=== PATIENT | male | born 1960 | race Caucasian/White ===

== ENCOUNTER 2020-12-28 20:27 | Emergency (ER) | payer OTHER, SELFPAY ==
[2020-12-28] VITALS (24 sets, daily range): BP systolic 105–147; BP diastolic 53–96; PULSE 91–106; RESP 10–24; TEMP 37.8; O2SAT 93–99
[2020-12-28 21:46] LABS: Basophils Percent Auto 0.2 % (0.2-1.2); Eosinophils Percent Auto 0.2 % (0-4.4); Hematocrit 38.9 % (42.0-52.0); Hemoglobin 13.1 g/dL (14.0-18.0); Immature Granulocyte Absolute 0.07 K/mm3 (0.00-0.031); Immature Granulocyte Percent A 0.5 % (0-0.5); Lymphocytes Absolute Auto 1.19 K/mm3 (0.9-3.2); Mean Corpuscular HGB Conc 33.7 g/dl (32-36); Mean Corpuscular Hemoglobin 31.2 pg (26-34); Mean Corpuscular Volume 92.6 fl (80-100); Mean Platelet Volume 9.2 fl (7.4-10.4); Monocytes Absolute Auto 1.4 K/mm3 (0.1-0.6); Monocytes Percent Auto 9.5 % (2.6-8.5); Neutrophils Absolute Auto 12.1 K/mm3 (1.3-6.7); Neutrophils Percent Auto 81.6 % (45.5-73.1); Platelet Count Result 288 k/mm3 (150-375); Red Cell Distribution Width 12.9 % (11.5-14.5); White Blood Count 14.8 K/mm3 (4.5-10.0)
[2020-12-28 21:47] LABS: Add Urine Microscopic? YES; Appearance Urine Cloudy (Clear); Bacteria Urine Trace /hpf; Bilirubin Urine Negative (Negative); Blood Urine 3+ (Negative); Color Urine Amber (Yellow); Glucose Urine UA Negative (Negative); Ketones Urine Negative (Negative); Leukocyte Esterase Ur 2+ LEU/UL (Negative); Mucus Urine Heavy /lpf; Nitrate Urine Positive (Negative); Protein Urine 2+ mg/dL (Negative); RBC Urine >75 /hpf (0-2); Squamous Epithelial Cell Urine Rare /hpf (Few); WBC Urine >75 /hpf
[2020-12-28 21:56] LABS: Alanine Aminotransferase 74 U/L (4-50); Albumin Level 4.5 g/dL (3.5-5.1); Alkaline Phosphatase 188 U/L (38-126); Anion Gap 12 mmol/L (8-16); Aspartate Amino Transferase 79 U/L (17-59); Bilirubin,Total 1.8 mg/dL (0.2-1.3); Blood Urea Nitrogen 18 mg/dL (9-20); Calcium 9.7 mg/dL (8.4-10.2); Carbon Dioxide 20 mmol/L (22-30); Chloride 106 mmol/L (98-107); Estimated CRCL calculation 71 ml/min; Estimated Glomerular Filt Rate > 60; Glucose 132 mg/dL (75-110); Potassium 3.9 mmol/L (3.4-5.0); Sodium 138 mmol/L (137-145)
[2020-12-28] MEDS: KETOROLAC 30 MG/ML VIAL (*BKC) IV PUSH (23:00)
[2020-12-28] MEDS: SODIUM CHLORIDE 0.9% IV 1,000 ML 999 ML IV CONT (23:00)
[2020-12-29] VITALS: PULSE 91; RESP 24; O2SAT 96
[2020-12-29 00:01] VITALS: BP 101/61; PULSE 94; RESP 21; O2SAT 95
--- NOTE | 2020-12-29 00:08 | PC.NURSE ---
started Rocephin, updated pt and family member. no questions at this time.
[2020-12-29 00:15] VITALS: PULSE 90; RESP 24; O2SAT 95
--- NOTE | 2020-12-29 00:51 | ED.GENADULT ---
HPI - General Adult General Chief complaint: Urogenital-Male Stated complaint: bladder infection/ blood infection Time Seen by Provider: 12/28/20 22:22 History of Present Illness HPI narrative: Patient 60-year-old gentleman who presents the emergency department with chief complaint of fever and chills. The patient reports he had a urological procedure at [place] and has a catheter in place. Patient reports that he started having fever chills body aches and aches all over. Patient states that he is concerned that he may have a urinary infection. Patient reports symptoms not improved by anything or they worsened by anything. Related Data Home Medications Medication Instructions Recorded Confirmed atorvastatin 12/28/20 carvedilol 12/28/20 losartan 12/28/20 Allergies Allergy/AdvReac Type Severity Reaction Status Date / Time No Known Drug Allergies Allergy Unknown Unknown Verified 12/28/20 21:59 Review of Systems Review of Systems: Narrative: A 10 system review of systems was completed on the patient and is negative except for what is stated in the HPI. Nursing and ancillary documentation was reviewed. [facility] Social History Social History Gender identity (if verbalized by the patient): Male Comments Amputation of right lower extremity Scar tissue and urethra Urethral surgery Social history the patient denies illicit drug use Exam Narrative: Exam Narrative: GENERAL: Well-appearing, well-nourished, and in no acute distress. HEAD: Normocephalic, atraumatic. EYES: PERRLA and EOMI. ENT: Nares clear, no rhinorrhea or epistaxis. Mucous membranes moist. NECK: Supple. CHEST: Clear to auscultation. No respiratory distress. HEART: Regular rate and rhythm. No murmur heard. Normal peripheral pulses. ABDOMEN: Soft, nontender, nondistended, normal active bowel sounds. EXTREMITIES: Normal range of motion. No edema. There is an amputation of the right lower extremity SKIN: Warm, dry, no rash. NEURO: No focal deficits. Alert and oriented x3. PSYCH: Normal mood and affect. Course Vital Signs Vital signs: Vital Signs Temperature 37.8 C H 12/28/20 20:53 Pulse Rate 104 H 12/28/20 20:53 Respiratory Rate 14 12/28/20 20:53 Blood Pressure 147/53 H 12/28/20 20:53 Pulse Oximetry 96 12/28/20 20:53 Temperature 37.8 C H 12/28/20 20:53 Pulse Rate 90 12/29/20 00:15 Respiratory Rate 24 H 12/29/20 00:15 Blood Pressure 101/61 12/29/20 00:01 Pulse Oximetry 95 12/29/20 00:15 Medical Decision Making Vital Signs Vital Signs: Vital Signs Temperature 37.8 C H 12/28/20 20:53 Pulse Rate 104 H 12/28/20 20:53 Respiratory Rate 14 12/28/20 20:53 Blood Pressure 147/53 H 12/28/20 20:53 Pulse Oximetry 96 12/28/20 20:53 Temperature 37.8 C H 12/28/20 20:53 Pulse Rate 90 12/29/20 00:15 Respiratory Rate 24 H 12/29/20 00:15 Blood Pressure 101/61 12/29/20 00:01 Pulse Oximetry 95 12/29/20 00:15 Lab Data Result diagrams: 12/28/20 21:39 12/28/20 21:39 Labs: Lab Results 12/28/20 12/28/20 12/28/20 Range/Units 21:30 21:39 21:39 WBC 14.8 H (4.5-10.0) K/mm3 RBC 4.20 L (4.6-6.20) M/mm3 Hgb 13.1 L (14.0-18.0) g/dL Hct 38.9 L (42.0-52.0) % MCV 92.6 (80-100) fl MCH 31.2 (26-34) pg MCHC 33.7 (32-36) g/dl RDW 12.9 (11.5-14.5) % Plt Count 288 (150-375) k/mm3 MPV 9.2 (7.4-10.4) fl Immature Gran % (Auto) 0.5 (0-0.5) % Neut % (Auto) 81.6 H (45.5-73.1) % Lymph % (Auto) 8.0 L (18.3-44.2) % [place] % (Auto) 9.5 H (2.6-8.5) % Eos % (Auto) 0.2 (0-4.4) % Baso % (Auto) 0.2 (0.2-1.2) % Lymph # (Auto) 1.19 (0.9-3.2) K/mm3 Assumption # (Auto) 1.4 H (0.1-0.6) K/mm3 Eos # (Auto) 0.0 (0-0.3) K/mm3 Baso # (Auto) 0.0 (0.0-0.1) K/mm3 Abs Immat Gran (auto) 0.07 H (0.00-0.031) K/mm3 Absolute Neuts (auto) 12.1 H (1.3-6.7) K/mm3 Absolute Nucleated RBC 0.0
[2020-12-29 01:12] VITALS: BP 110/64; PULSE 68; RESP 20; O2SAT 98
== END 2020-12-29 01:16 | disposition home or self-care (01) ==
PROVIDERS: Emergency Provider Emergency Medicine; PCP Nurse Practitioner Family
DX: N30.01 Acute cystitis with hematuria (principal)
CPT/HCPCS: 36415; 80053; 81001; 83605; 85025; 87077; 87086; 87088; 87186; 96361; 96365; 96374; 99284; J0696; J1885; J7030

== ENCOUNTER 2021-01-23 11:55 | Emergency (ER) | payer OTHER, SELFPAY ==
--- NOTE | ~2021-01-23 | XR_ITS ---
EXAMINATION: XR hand RT min 3V DATE: 01/23/2021 12:17 INDICATION: Lacerations at the right second and fourth fingers TECHNIQUE: Posteroanterior, oblique and lateral views of the right hand were obtained. COMPARISON: None. FINDINGS: Bone alignment is normal. No fracture. Prominent subarticular cystic change at the ulnar side of the proximal aspect of the lunate which may be related to ulnocarpal impaction given the suggestion of 1- 2 mm ulnar positive variance. Polyarticular osteoarthritis at the triscaphe, first carpometacarpal an d at multiple metacarpophalangeal and interphalangeal joints. Additional likely degenerative mild sub articular cystic change at the head of the third metacarpal. Bandaging material about the proximal as pect of the second digit and distal aspect of the fourth digit consistent with provided history of la cerations. No radiopaque foreign bodies identified. IMPRESSION: 1. No acute osseous abnormality or radiopaque foreign bodies. 2. One half and 2 mm ulnar positive variance with cystic change at the lunate consistent with ulnocar pal impaction. 3. Mild polyarticular osteoarthritis. Reviewed, dictated and finalized at location A. IMPRESSION: 1. No acute osseous abnormality or radiopaque foreign bodies. 2. One half and 2 mm ulnar positive variance with cystic change at the lunate c onsistent with ulnocarpal impaction. 3. Mild polyarticular osteoarthritis.
[2021-01-23 12:04] VITALS: BP 167/89; PULSE 99; RESP 20; TEMP 37.3; O2SAT 100
[2021-01-23 13:55] VITALS: BP 151/103; PULSE 98; RESP 20; TEMP 36.7; O2SAT 99
--- NOTE | 2021-01-23 15:26 | ED.WOUNDLAC ---
HPI - Wound/Laceration General Chief Complaint: Wound/Laceration Stated Complaint: laceration right 2nd and 4th digit Time Seen by Provider: 01/23/21 13:18 Source: patient and RN notes reviewed Mode of arrival: ambulatory Limitations: no limitations History of Present Illness HPI narrative: Patient is 60 years old white male drove himself to the emergency room because of multiple laceration to the left index and ring finger. After trying to manage an airplane, remote controlled propeller prior to arrival to the emergency room. Patient denies other injuries Related Data Home Medications Medication Instructions Recorded Confirmed atorvastatin 12/28/20 carvedilol 12/28/20 losartan 12/28/20 oxybutynin chloride mg PO 01/23/21 Allergies Allergy/AdvReac Type Severity Reaction Status Date / Time No Known Allergies Allergy Verified 01/23/21 14:12 Review of Systems Review of Systems: CONSTITUTIONAL: Denies fever, chills, or sweats. EYES: Denies visual changes, redness, or discharge. ENT: Denies rhinorrhea, congestion, sore throat, or otalgia. CARDIOVASCULAR: Denies chest pain, palpitations, or edema. RESPIRATORY: Denies cough or dyspnea. GASTROINTESTINAL: Denies abdominal pain, nausea, vomiting, or diarrhea. GENITOURINARY: Denies dysuria or hematuria. SKIN: Denies rash or itching. MUSCULOSKELETAL: Denies back pain, joint pain, or myalgia. NEUROLOGIC: Denies headache, numbness, or weakness. PSYCHIATRIC: Denies anxiety or depression. PMFSH Social History Social History Gender identity (if verbalized by the patient): Male Exam Narrative: General appearance: Well-developed, well-nourished Skin: Normal color, left index showed multiple lacerations horizontally at the proximal phalanx, palmar side, no tendon or ligament involvement. Left ring finger showed 2 cm laceration at the distal phalanx, palmar side parallel to the nailbed Chest and respiratory: Airway patent, no respiratory distress, no accessory muscle use Heart: Regular rate/rhythm Vascular: Normal peripheral pulses, normal capillary refill. Musculoskeletal: Normal range of motion, nontender back Neurologic: Alert and oriented ?3, ELECTION WATCHER is normal as tested, no gross motor deficit Course Consultations Consultation #1: Dr. Cain Date: 01/23/21 Time: 15:47 Consultation #2: , ED [facility], accepted patient transfer for hand surgery management Date: 01/23/21 Time: 15:47 Vital Signs Vital signs: Vital Signs Temperature 37.3 C 01/23/21 12:04 Pulse Rate 99 01/23/21 12:04 Respiratory Rate 20 01/23/21 12:04 Blood Pressure 167/89 H 01/23/21 12:04 Pulse Oximetry 100 01/23/21 12:04 Temperature 36.7 C 01/23/21 13:55 Pulse Rate 98 01/23/21 13:55 Respiratory Rate 20 01/23/21 13:55 Blood Pressure 151/103 H 01/23/21 13:55 Pulse Oximetry 99 01/23/21 13:55 MDM - Wound/Laceration MDM Narrative Medical decision making narrative: Multiple soft tissue lacerations of the left index and left ring finger. Hand surgeon/plastic surgeon is my concern at this time. Differential Diagnosis Differential diagnosis: Likely laceration Imaging Data Radiologist's impression: Impressions Hand X-Ray 01/23/21 12:20 IMPRESSION: 1. No acute osseous abnormality or radiopaque foreign bodies. 2. One half and 2 mm ulnar positive variance with cystic change at the lunate consistent with ulnocarpal impaction. 3. Mild polyarticular osteoarthritis. Critical Care Time Critical Care Time Critical Care Time: Yes Total Critical Care Time: 30 Discharge Plan Discharge Clinical Impressio
--- NOTE | 2021-01-23 15:35 | PC.NURSE ---
Pulse oximetry checked in patient's index and middle finger of the right hand per order of the EDP. Both were noted to be at 98%. Skin is warm and dry distal to wounds. Patient is able to feel touch distal to the wounds. Patient is able to bend fingers but reports pain when attempting to do so.
[2021-01-23] MEDS: TETANUS,DIPHTHERIA,AC PERTUSSIS ADULT (0.5 ML) BOOSTRIX IM (15:39)
[2021-01-23 15:42] VITALS: BP 148/89; PULSE 95; RESP 15; TEMP 36.6; O2SAT 98
--- NOTE | 2021-01-23 16:04 | PC.NURSE ---
[facility] called for transfer to [facility] er @ 1521 @ 1540 dispatch called for eta they stated not their job to follow up that EMS would call er no eta given @ 1550 Amy at [facility] was called for ETA she stated that she would call back with eta @ 1601 [facility] called - accepted ETA 1700 Trip # [id number] @ 1611 Amy from [facility] called backed stated that they could do BLS transfer to [facility] ER ETA 1730, at this time [facility] was cancelled
--- NOTE | 2021-01-23 16:21 | PC.NURSE ---
@ 1601 [facility] accepted trans to [facility] ETA 1700 Trip # [id number]
[2021-01-23] MEDS: HYDROcodone/acetaminophen (*CRX) 5-325 MG TABLET 1 TAB PO (17:15)
[2021-01-23] MEDS: IBUPROFEN 600 MG TABLET PO (17:16)
[2021-01-23 17:46] VITALS: BP 158/89; PULSE 97; RESP 18; TEMP 36.9; O2SAT 96
== END 2021-01-23 17:46 | disposition short-term general hospital (02) ==
PROVIDERS: Emergency Provider Emergency Medicine; PCP Nurse Practitioner Family
DX: S61.211A Laceration without foreign body of left index finger without damage to nail, initial encounter (principal); S61.215A Laceration without foreign body of left ring finger without damage to nail, initial encounter; Z23 Encounter for immunization; M19.041 Primary osteoarthritis, right hand; W26.8XXA Contact with other sharp object(s), not elsewhere classified, initial encounter
CPT/HCPCS: 73130; 90471; 90715; 99285; A9270

== ENCOUNTER 2022-08-21 19:44 | Observation (INO) | payer OTHER, SELFPAY ==
[2022-08-21] VITALS (8 sets, daily range): BP systolic 129–158; BP diastolic 81–104; PULSE 89–91; RESP 18; TEMP 36.6–36.9; O2SAT 91–98
--- NOTE | ~2022-08-21 | US_ITS ---
EXAMINATION: US renal BI DATE: 08/22/2022 17:19 INDICATION: nephrolithiasis bilaterally TECHNIQUE: Multiple grayscale and Doppler ultrasound images of the kidneys were obtained. COMPARISON: CT abdomen and pelvis 08/21/2022 FINDINGS: The right kidney measures 10.9 x 6.3 x 6.5 cm. The left kidney measures 11.7 x 6.4 x 6.7 cm. The kidn eys demonstrate normal parenchymal echogenicity. There is no hydronephrosis. The bladder is normal. IMPRESSION: Unremarkable renal sonogram findings. Reviewed, dictated and finalized at location K. [employer]
--- NOTE | ~2022-08-21 | XR_ITS ---
XR abdomen/kub 1V 08/22/2022 13:20 Indication: Abdomen pain Procedure: KUB Comparison: No prior studies for comparison. Findings: There are bilateral renal stones. Bowel gas pattern is nonobstructive. Moderate colonic fec al loading. No acute osseous abnormality. Impression: 1: Bilateral nephrolithiasis. Reviewed, dictated and finalized at location B. PROSPECTOR Impression: 1: Bilateral nephrolithiasis.
--- NOTE | ~2022-08-21 | CT_ITS ---
Non-contrast CT scan of the Abdomen and Pelvis Clinical indication: Back pain, abdominal pain Technique: 2.5 mm axial scans were obtained through the abdomen and pelvis without intravenous or or al contrast. Dose reduction technique was used on this scan by utilizing automated exposure control a nd iterative reconstruction technique. The dose-length product (DLP) was 745.71 mGy-cm. Findings: Images through the lung bases reveal no abnormalities. There is no evidence of renal or ureteral calculi. The kidneys and the ureters are nondilated. The liver, spleen, pancreas, gallbladder, and adrenals appear normal. There is no aortic aneurysm. T here are atherosclerotic calcifications of the aorta. There is no evidence of bowel obstruction. Images through the pelvis were performed. There is no evidence of ascites or lymphadenopathy. Urinary bladder unremarkable. Prostate gland and seminal vesicles are unremarkable. Impression: No acute abnormality. Reviewed, dictated and finalized at [facility]. [place] HAND Impression: No acute abnormality.
--- NOTE | 2022-08-21 21:06 | ECG_ITS ---
Measurements Intervals [place] Rate: 93 P: 45 CA: 152 QRS: -26 QRSD: 115 T: 53 QT: 330 QTc: 410 Interpretive Statements SINUS RHYTHM BASELINE ARTIFACT LOW QRS VOLTAGE IN PRECORDIAL LEADS INCOMPLETE RIGHT BUNDLE BRANCH BLOCK BORDERLINE ECG NO PREVIOUS ECG AVAILABLE FOR COMPARISON Electronically Signed On 08-22-2022 14:09:44 PARTNERSHIP MARKETING MANAGER by Shaheen Ferrell M.D.
[2022-08-21] MEDS: HYDROmorphone HCL INJ (*CRX) 1 MG/ML SYR IV PUSH (21:17)
--- NOTE | 2022-08-21 21:23 | ED.BACK ---
HPI - Back Pain/Injury General Chief Complaint: Back Pain/Injury Stated Complaint: Lower back pain Time Seen by Provider: 08/21/22 20:53 History of Present Illness HPI Narrative: Patient is a 61-year-old male with a history of hypertension here for evaluation of back pain. Patient states the pain started this morning as a cramping type pain and has since progressed in severity. The pain is now present across the front of his abdomen and is very severe in nature. The pain comes in waves. He has not attempted any medicine for his pain. No chest pain, shortness of breath, nausea, vomiting, diarrhea or constipation. Related Data Home Medications Medication Instructions Recorded Confirmed atorvastatin 20 mg tablet 12/28/20 carvedilol 12.5 mg tablet 12/28/20 losartan 100 mg tablet 12/28/20 oxybutynin chloride 10 mg mg PO 01/23/21 tablet,extended release 24 hr Allergies Allergy/AdvReac Type Severity Reaction Status Date / Time No Known Allergies Allergy Verified 08/21/22 19:57 Review of Systems Review of Systems: Gen.: Denies fevers or chills Eyes: Denies eye pain or visual change ENT: Denies congestion Respiratory: Denies shortness of breath or cough CV: Denies chest pain or palpitations GI: Reports abdominal pain. Denies nausea, emesis or diarrhea denies burning, urgency, frequency or hematuria Musculoskeletal: Reports back pain. Neuro: Denies numbness, tingling, weakness or focal weakness Skin: Denies rash Except as documented, all other systems reviewed and negative [facility] Social History Social History Gender identity (if verbalized by the patient): Male Exam Narrative: APPEARANCE: Uncomfortable appearing Head: Normocephalic and atraumatic. EYES: PERRLA/EOMI, conjunctivae clear NOSE: No nasal drainage EARS: External ear normal in appearance THROAT: Oropharynx is clear. Mucous membranes are moist. NECK: Supple. No adenopathy, no masses. RESPIRATORY: Airway patent, respirations nonlabored. Clear to auscultation bilaterally, no rales, rhonchi, wheezing. CARDIOVASCULAR: No pulse deficit. regular rate and rhythm without murmurs, rubs, or gallops. ABDOMINAL: abdomen is soft and nontender to palpation, no CVA tenderness MUSCULOSKELETAL: Extremities are warm and well-perfused. Moves all extremities well. No edema. NEURO: Normal speech. No focal neurologic deficits. SKIN: Skin is warm and dry. No rashes. PSYCHIATRIC: Normal affect/mood. Course Vital Signs Vital signs: Vital Signs Temperature 98.4 F 08/21/22 19:54 Pulse Rate 91 08/21/22 19:54 Respiratory Rate 18 08/21/22 19:54 Blood Pressure 158/100 H 08/21/22 19:54 Pulse Oximetry 98 08/21/22 19:54 Temperature 98 F 08/21/22 23:11 Pulse Rate 98 08/22/22 01:15 Respiratory Rate 17 08/22/22 01:01 Blood Pressure 161/88 H 08/22/22 01:01 Pulse Oximetry 95 08/22/22 01:15 MDM - Back Pain/Injury MDM Narrative Medical decision making narrative: Patient is a 61-year-old male here for evaluation of low back pain and abdominal pain over the past day. Patient is uncomfortable appearing but has no abdominal tenderness on exam. He has a white count of 13.5. His lactic is negative. EKG obtained in triage is nonischemic and his troponin is negative. He does have evidence of UTI with 4+ bacteria, 1+ leuks and is nitrate positive. It appears he has an acute kidney injury as well with a creatinine of 2.2 and BUN of 25, his baseline appears to be around 1.2. He has no known history of kidney disease. CT abdomen pelvis without acute intra-abdominal process particularly no obstructing kidney stone. Patient was given fluids, pain meds and started on ceftriaxone in the ED with improvement of his symptoms. Given acute kidney injury and presence of UTI feel patient would benefit from observation. Spoke with Dr. Souza who agrees with plan for admission. Lab Data 08/21/22
[2022-08-21 21:27] LABS: Appearance Urine Clear (Clear); Bacteria Urine 4+ /hpf; Bilirubin Urine Negative (Negative); Blood Urine Negative (Negative); Color Urine Yellow (Yellow); Glucose Urine UA Negative (Negative); Ketones Urine Negative (Negative); Leukocyte Esterase Ur 1+ LEU/UL (Negative); Nitrate Urine Positive (Negative); Non Pathogenic Casts 0-2; Protein Urine 1+ mg/dL (Negative); RBC Urine 0-2 /hpf (0-2); Specific Grav Ur 1.006 (1.001-1.035); Squamous Epithelial Cell Urine None seen /hpf (Few); Urobilinogen Urine 0.2 mg/dL (<2.0); WBC Urine 21-50 /hpf; pH Urine 7.5 (5.0-9.0)
[2022-08-21 21:29] LABS: Add Urine Microscopic? YES
[2022-08-21 22:03] LABS: Basophils Absolute Auto 0.1 K/mm3 (0.0-0.1); Basophils Percent Auto 0.4 % (0.2-1.2); Eosinophils Absolute Auto 0.2 K/mm3 (0-0.3); Eosinophils Percent Auto 1.6 % (0-4.4); Hematocrit 44.8 % (42.0-52.0); Hemoglobin 15.8 g/dL (14.0-18.0); Immature Granulocyte Absolute 0.05 K/mm3 (0.00-0.031); Immature Granulocyte Percent A 0.4 % (0-0.5); Lymphocytes Absolute Auto 2.35 K/mm3 (0.9-3.2); Lymphocytes Percent Auto 17.5 % (18.3-44.2); Mean Corpuscular HGB Conc 35.3 g/dl (32-36); Mean Corpuscular Hemoglobin 32.6 pg (26-34); Mean Corpuscular Volume 92.4 fl (80-100); Mean Platelet Volume 10.1 fl (7.4-10.4); Monocytes Absolute Auto 1.5 K/mm3 (0.1-0.6); Monocytes Percent Auto 11.4 % (2.6-8.5); Neutrophils Absolute Auto 9.2 K/mm3 (1.3-6.7); Neutrophils Percent Auto 68.7 % (45.5-73.1); Platelet Count Result 249 k/mm3 (150-375); Red Blood Count 4.85 M/mm3 (4.6-6.20); Red Cell Distribution Width 13.3 % (11.5-14.5); White Blood Count 13.5 K/mm3 (4.5-10.0)
[2022-08-21 22:11] LABS: Lactic Acid Reflex 1.9 mmol/L (0.7-2.0)
[2022-08-21 22:12] LABS: Potassium 4.1 mmol/L (3.4-5.0)
[2022-08-21 22:15] LABS: Alanine Aminotransferase 32 U/L (6-50); Albumin Level 5.1 g/dL (3.5-5.1); Alkaline Phosphatase 83 U/L (38-126); Anion Gap 10 mmol/L (8-16); Aspartate Amino Transferase 32 U/L (17-59); Bilirubin,Total 1.3 mg/dL (0.2-1.3); Blood Urea Nitrogen 25 mg/dL (9-20); Calcium 9.8 mg/dL (8.4-10.2); Carbon Dioxide 22 mmol/L (22-30); Chloride 105 mmol/L (98-107); Estimated CRCL calculation 39 ml/min; Estimated Glomerular Filt Rate 31; Glucose 99 mg/dL (65-110); Lipase 148 U/L (23-300); Sodium 137 mmol/L (137-145)
[2022-08-21 22:24] LABS: Troponin I < 0.012 ng/mL (0.000-0.034)
[2022-08-21] MEDS: HYDROmorphone HCL INJ (*CRX) 1 MG/ML SYR 0.5 MG IV PUSH (22:35)
--- NOTE | 2022-08-21 22:59 | PC.NURSE ---
Report received from VALERIE Shaver. Assumed care of patient at this time.
[2022-08-21] MEDS: LACTATED RINGERS 1,000 ML 999 ML IV CONT ×2 (23:13→23:14)
[2022-08-22] VITALS (24 sets, daily range): BP systolic 121–161; BP diastolic 68–99; PULSE 68–114; RESP 12–23; TEMP 36.1–36.3; O2SAT 91–98; BMI 24.3
--- NOTE | 2022-08-22 00:41 | PM.IMHP ---
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 Patient presents to the emergency room due to back pain denies any fevers, rigors, chills, nausea, vomiting, night sweats has had abdominal discomfort with distention and bloating. In emergency room patient was found to have urinalysis with numerous WBCs present. Patient is now been admitted for further evaluation management and treatment. Review of Systems Review of Systems: Back pain Constitutional: Constitutional: Denies chills, Denies fever(s) and Denies night sweats Eyes: Eyes: Denies change in vision ENT: Denies dysphagia, Denies vertigo, Denies dizziness and Denies odynophagia Cardiovascular: Cardiovascular: Denies chest pain, Denies leg edema, Denies lightheadedness and Denies palpitations Respiratory: Respiratory: Denies chest congestion, Denies cough, Denies pain on inspiration, Denies dyspnea on exertion and Denies wheezing Gastrointestinal: Gastrointestinal: Denies abdominal pain, Reports bloating, Denies dyspepsia, Denies heartburn, Denies diarrhea, Denies nausea and Denies vomiting Genitourinary: Genitourinary: Reports flank pain Musculoskeletal: Musculoskeletal: Reports back pain Integumentary/Breasts: Skin/Breast: Denies rash Neurologic: Denies focal weakness and Denies Sensory deficit (Neuro) Psychiatric: Psychiatric: Reports no additional psychiatric complaints and Reports as per HPI Endocrine: Endocrine: Denies cold intolerance, Denies flushing, Denies heat intolerance, Denies polyphagia, Denies polydipsia and Denies palpitations Hematologic/Lymphatic: Hematologic/Lymphatic: Reports no additional hematologic/lymphatic complaints and Reports as per HPI Allergic/Immunologic: Allergic/Immunologic: Reports no additional allergic/immunologic complaints and Reports as per HPI PMFSH Social History Social History Gender identity (if verbalized by the patient): Male Meds Home Medications and Allergies Home Medications Medication Instructions Recorded Confirmed Type atorvastatin 20 mg tablet 12/28/20 History carvedilol 12.5 mg tablet 12/28/20 History losartan 100 mg tablet 12/28/20 History oxybutynin chloride 10 mg mg PO 01/23/21 History tablet,extended release 24 hr Allergies Allergy/AdvReac Type Severity Reaction Status Date / Time No Known Allergies Allergy Verified 08/21/22 19:57 Vital Signs Vital Signs - 24 hr 08/21/22 19:54 08/21/22 23:10 08/21/22 23:11 Temperature 98.4 F 98 F Pulse Rate 91 89 Respiratory Rate 18 18 Blood Pressure 158/100 H 152/104 H Pulse Oximetry 98 93 93 Exam Narrative: Patient is sitting by the edge of the stretcher Const: General: comfortable, no acute distress, well developed, alert, awake, thin and other (Apprehensive) Nutritional Appearance: average body habitus Orientation/consciousness: patient oriented x3 HENMT: Head: normal to inspection, normocephalic and atraumatic Ears: hearing grossly normal bilaterally Face/Nose/Sinus: normal facial exam Face and sinus: normal facial exam Eyes: General: appearance normal, both eyes and all related structures Pupils: Equal, round and reactive pupils present EOM: EOMs intact bilaterally Neck: Neck: full ROM, no lymphadenopathy and no JVD Thyroid: thyroid normal Lymphatic: no lymphadenopathy noted Resp: Effort & Inspection: normal respiratory effort and able to speak in complete sentences Auscultation: clear to auscultation bilaterally Cardio: Jugular venous distension: no JVD Rate: regular rate Rhythm: regula
[2022-08-22 01:13] LABS: Influenza B QL RT-PCR Negative (Negative); SARS-CoV-2 RNA PCR Negative
[2022-08-22 01:14] LABS: Influenza A QL RT-PCR Negative (Negative)
--- NOTE | 2022-08-22 02:26 | PC.NURSE ---
Hospitalist in room with patient. VORB per Dr. Souza, give patient 0.5mg of dilaudid.
[2022-08-22] MEDS: HYDROmorphone HCL INJ (*CRX) 1 MG/ML SYR 0.5 MG IV PUSH (02:30)
[2022-08-22] MEDS: LACTATED RINGERS 1,000 ML 150 ML IV CONT (03:42)
[2022-08-22] MEDS: traMADol HCL (*CRX) 50 MG TABLET PO ×2 (06:44→17:24)
--- NOTE | 2022-08-22 08:56 | PM.IMPN ---
Progress Note: A&P Assessment and Plan (1) Urinary tract infection: Code(s): N39.0 - Urinary tract infection, site not specified Status: Acute Assessment and Plan: UA positive for leukocytes 1+, nitrates and 4+ bacteria. CT without bladder wall thickening or kidney stones noted. Started on Rocephin 1 gram Q24 hours in the ED, first dose 08/21. Continue Rocephin IV and adjust antibiotics per cultures. (2) Acute kidney injury: Code(s): N17.9 - Acute kidney failure, unspecified Status: Acute Assessment and Plan: BUN 25, creatinine 2.2, GFR 39 on admission. Prior labs 12/2020 showed BUN 18, creatinine 1.2 and GFR >60 Given IV fluids in ED. Repeat labs with BUN 20, creatinine 1.6 and GFR 53, improved. hold losartan Continue IV fluids, NS@100 mL/hour. Daily BMP Urine creatinine and sodium pending. 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 Tylenol 1000 mg PO Q6 hours mild to moderate pain, tramadol 50 mg Q6 hours PRN moderate to severe pain, and morphine 2 mg IV PRN for breakthrough pain. CT scan without nephro or ureterolithiasis, however, symptoms seem concerning for stones. KUB pending. (5) Abdominal pain: Code(s): R10.9 - Unspecified abdominal pain Status: Acute Assessment and Plan: left and right lower quadrant abd pain radiating to both flanks. CT abd/pelvis negative for acute findings. Last BM the day before admission. Check KUB. Zofran IV PRN nausea. Plan CODE STATUS: FULL CODE Disposition: from home. Discharge pending improvement in symptoms. Time Spent With Patient Time: 35 minutes time spent reviewing medical chart, nursing documentation, labs, vitals, and patient assessment.? 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 UA was concerning for infection and BUN/creatinine were elevated suggesting LEIF. He was admitted for IV antibiotic therapy.? Patient presents to the emergency room due to back pain. He reports severe, shocking time pain to his LLQ and radiating to his back. He reports urinating frequently since admission and it is pale yellow. He has been drinking lots of water. He denies urinary urgency, frequency, incontinence, hematuria. He denies h/o kidney stones. He had his urethra reconstructed over a year and a half ago and reports he has not had issues with urinary retention since that time. He is passing flatus and last BM was yesterday. No nausea or emesis. Review of Systems Review of Systems: All systems reviewed & are unremarkable except as noted in HPI and below Exam Narrative: General: No acute distress.? Well-developed adult male lying in bed. Mental Status/Psych: Awake, alert and oriented to person and place with clear speech. Neutral mood and affect. Pleasant and cooperative. Skin: Skin fair, warm, dry and intact without rashes or lesions. No open wounds. Good turgor.? HEENT: Normocephalic. Sclera is non-icteric. EOM intact. PERRL. Grossly normal hearing. Oral mucosa pink and moist. Neck: Supple. Thyroid without nodularity. Trachea midline. No JVD. Heart: S1 and S2 regular rate and rhythm. No murmurs, gallops, or rubs auscultated. Chest: Respirations even and unlabored. Lung sounds are clear to auscultation in a
[2022-08-22] MEDS: ATORVASTATIN 20 MG TABLET PO (09:50)
[2022-08-22] MEDS: amLODIPine BESYLATE 5 MG TABLET 10 MG PO (09:51)
[2022-08-22] MEDS: carvediloL 12.5 MG TABLET PO ×2 (09:51→20:44)
[2022-08-22 10:41] LABS: Albumin Level 4.4 g/dL (3.5-5.1); Anion Gap 4 mmol/L (8-16); Blood Urea Nitrogen 20 mg/dL (9-20); Calcium 9.5 mg/dL (8.4-10.2); Carbon Dioxide 26 mmol/L (22-30); Chloride 104 mmol/L (98-107); Estimated CRCL calculation 53 ml/min; Estimated Glomerular Filt Rate 44; Glucose 123 mg/dL (65-110); Magnesium 2.2 mg/dL (1.6-2.3); Phosphorus 3.7 mg/dL (2.5-4.5); Potassium 3.8 mmol/L (3.4-5.0); Sodium 134 mmol/L (137-145)
[2022-08-22 10:42] LABS: CRP 1.4 mg/dL (<1.0)
[2022-08-22] MEDS: CYCLOBENZAPRINE HCL 10 MG TABLET PO (10:56)
[2022-08-22] MEDS: SODIUM CHLORIDE 0.9% IV 1,000 ML 100 ML IV CONT (11:00)
[2022-08-22 11:52] LABS: Procalcitonin 0.3 ng/mL
[2022-08-22 14:32] LABS: Creatinine Urine 27.2 mg/dL
[2022-08-22 14:37] LABS: Sodium Urine Random 78 meq/L
[2022-08-23] MEDS: SODIUM CHLORIDE 0.9% IV 1,000 ML 100 ML IV CONT (01:00)
[2022-08-23 05:00] VITALS: BP 128/83; PULSE 76; RESP 18; TEMP 36.1; O2SAT 97
[2022-08-23 06:23] LABS: Basophils Percent Auto 0.4 % (0.2-1.2); Eosinophils Absolute Auto 0.2 K/mm3 (0-0.3); Eosinophils Percent Auto 2.9 % (0-4.4); Hematocrit 40.7 % (42.0-52.0); Immature Granulocyte Absolute 0.04 K/mm3 (0.00-0.031); Immature Granulocyte Percent A 0.5 % (0-0.5); Lymphocytes Absolute Auto 2.19 K/mm3 (0.9-3.2); Lymphocytes Percent Auto 29.2 % (18.3-44.2); Mean Corpuscular HGB Conc 34.4 g/dl (32-36); Mean Platelet Volume 9.8 fl (7.4-10.4); Monocytes Absolute Auto 0.7 K/mm3 (0.1-0.6); Monocytes Percent Auto 9.5 % (2.6-8.5); Neutrophils Absolute Auto 4.3 K/mm3 (1.3-6.7); Neutrophils Percent Auto 57.5 % (45.5-73.1); Platelet Count Result 197 k/mm3 (150-375); Red Blood Count 4.24 M/mm3 (4.6-6.20); Red Cell Distribution Width 13.5 % (11.5-14.5); White Blood Count 7.5 K/mm3 (4.5-10.0)
[2022-08-23 06:38] LABS: Anion Gap 3 mmol/L (8-16); Blood Urea Nitrogen 15 mg/dL (9-20); Calcium 8.8 mg/dL (8.4-10.2); Carbon Dioxide 27 mmol/L (22-30); Chloride 110 mmol/L (98-107); Estimated CRCL calculation 70 ml/min; Estimated Glomerular Filt Rate > 60; Glucose 107 mg/dL (65-110); Magnesium 2.2 mg/dL (1.6-2.3); Phosphorus 3.9 mg/dL (2.5-4.5); Potassium 3.7 mmol/L (3.4-5.0); Sodium 140 mmol/L (137-145)
[2022-08-23 08:18] VITALS: PULSE 76
[2022-08-23] MEDS: carvediloL 12.5 MG TABLET PO (08:18)
[2022-08-23] MEDS: amLODIPine BESYLATE 5 MG TABLET 10 MG PO (08:19)
[2022-08-23] MEDS: ATORVASTATIN 20 MG TABLET PO (08:19)
--- NOTE | 2022-08-23 10:37 | PM.DS ---
DS: Admitting Diagnosis Discharge Date 08/23/2022 Admitting Diagnosis Urinary tract infection Acute kidney injury Dorsalgia, unspecified DS: Discharge Diagnosis Discharge Diagnosis (1) Urinary tract infection: Qualifiers: Urinary tract infection type: site unspecified Hematuria presence: without hematuria Qualified Code(s): N39.0 - Urinary tract infection, site not specified Code(s): N39.0 - Urinary tract infection, site not specified Status: Acute Assessment and Plan: UA positive for leukocytes 1+, nitrates and 4+ bacteria. CT without bladder wall thickening or kidney stones noted. Complicated UTI Started on Rocephin 1 gram Q24 hours in the ED, first dose 08/21. Continue Rocephin IV on admission Transitioned to cefdinir 300 mg PO Q12 on 08/23/22 to complete 10-day course. (2) Acute kidney injury: Code(s): N17.9 - Acute kidney failure, unspecified Status: Acute Assessment and Plan: BUN 25, creatinine 2.2, GFR 39 on admission. Prior labs 12/2020 showed BUN 18, creatinine 1.2 and GFR >60 Given IV fluids in ED. Repeat labs with BUN 20, creatinine 1.6 and GFR 53, improved. held losartan Continue IV fluids, NS@100 mL/hour until renal function returned to normal. Daily BMP Urine creatinine and sodium obtained, FENa 3.4% intrinsic except obtained after treatment started. . 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 Likely secondary to nephrolithiasis Tylenol 1000 mg PO Q6 hours mild to moderate pain, tramadol 50 mg Q6 hours PRN moderate to severe pain, and morphine 2 mg IV PRN for breakthrough pain. CT scan without nephro or ureterolithiasis, however, symptoms seem concerning for stones. KUB shows bilateral nephrolithiasis Renal US negative. (5) Abdominal pain: Qualifiers: Abdominal location: unspecified location Qualified Code(s): R10.9 - Unspecified abdominal pain Code(s): R10.9 - Unspecified abdominal pain Status: Acute Assessment and Plan: left and right lower quadrant abd pain radiating to both flanks. CT abd/pelvis negative for acute findings. Last BM the day before admission. KUB [id number] bowel gas pattern Zofran IV PRN nausea. (6) Kidney stones: Code(s): N20.0 - Calculus of kidney Status: Acute Assessment and Plan: Noted on KUB. nonobstructing as pain improved. 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 Prior history of recurrent UTIs.? He presented to the emergency room due to back pain. He denied fevers, rigors, chills, nausea, vomiting, night sweats. He had abdominal discomfort with distention and bloating.? In emergency room patient was found to have urinalysis with numerous WBCs present.? He was admitted for further management. He was continued on IV Rocephin. Back and flank pain persisted. KUB showed bilateral nephrolithiasis not visualized on CT scan. He was treated medically. Back pain improved. He was transitioned to oral cefdinir and oral tramadol were continued on discharge. Renal US was negative. He was discharged home in stable condition. . Status at Discharge Cognitive/behavioral status at discharge: AOx4, baseline Funct
== END 2022-08-23 11:10 | disposition home or self-care (01) ==
LOC: ANHED 08-22 02:22 → ANH3MEDSUR 08-22 02:43
PROVIDERS: Nurse Practitioner Family; Admitting Provider Internal Medicine; Emergency Provider Physician Assistant; PCP Nurse Practitioner Family; Visit Provider Student in an Organized Health Care Education/Training Program
DX: N39.0 Urinary tract infection, site not specified (principal); N17.9 Acute kidney failure, unspecified; M54.9 Dorsalgia, unspecified; R10.9 Unspecified abdominal pain; Z96.698 Presence of other orthopedic joint implants; I10 Essential (primary) hypertension; N20.0 Calculus of kidney; D72.829 Elevated white blood cell count, unspecified; I45.10 Unspecified right bundle-branch block; Z20.822 Contact with and (suspected) exposure to COVID-19; Z79.899 Other long term (current) drug therapy
CPT/HCPCS: 36415; 74018; 74176; 76775; 80048; 80053; 80069; 81001; 82570; 83605; 83690; 83735; 84100; 84145; 84300; 84484; 85025; 86140; 87040; 87636; 93005; 96361; 96365; 96375; 99285; A9270; G0378; J0696; J1170; J7030; J7120

== ENCOUNTER 2023-07-06 05:58 | Emergency (ER) | payer OTHER, SELFPAY ==
--- NOTE | ~2023-07-06 | US_ITS ---
Testicular ultrasound with doppler. Indication: Testicular trauma. Technique: Real-time sonography the scrotum was performed. Color flow Doppler and Doppler spectral an alysis were performed. Findings: The testes are homogeneous in echotexture bilaterally. There is no evidence of an intrates ticular mass. The right testis measures 5.5 x 3.3 x 3.2 cm and the left 5.8 x 2.3 x 3.3 cm. There is color-flow seen to both testes. Arterial and venous spectral waveforms are seen in both testes. There is no sonographic evidence of torsion. Left epididymis unremarkable. Right epididymis appears probab ly prominent hypervascular. There is a large complex, multiseptated right hydrocele. No left hydrocel e. There is probable diffuse scrotal soft tissue edema/swelling.. Impression: Right epididymitis. Large complex, multiseptated right hydrocele. Findings could reflect hemorrhagic hydrocele given hist ory of trauma, versus other exudative or infectious hydrocele. No testicular mass or torsion. Reviewed, dictated and finalized at [facility]. TER HELPER Impression: Right epididymitis. Large complex, multiseptated right hydrocele. Findings could reflect hemorrhagi c hydrocele given history of trauma, versus other exudative or infectious hydro taryn. No testicular mass or torsion.
[2023-07-06 05:59] VITALS: BP 152/79; PULSE 85; RESP 14; TEMP 36.6; O2SAT 99
[2023-07-06] MEDS: HYDROmorphone HCL INJ (*CRX) 1 MG/ML SYR IV PUSH (07:16)
[2023-07-06 07:18] VITALS: PULSE 81; RESP 18; O2SAT 98
[2023-07-06 07:20] LABS: Basophils Percent Auto 0.3 % (0.2-1.2); Eosinophils Absolute Auto 0.4 K/mm3 (0-0.3); Hematocrit 39.5 % (42.0-52.0); Hemoglobin 13.5 g/dL (14.0-18.0); Immature Granulocyte Absolute 0.04 K/mm3 (0.00-0.031); Immature Granulocyte Percent A 0.3 % (0-0.5); Lymphocytes Absolute Auto 1.98 K/mm3 (0.9-3.2); Mean Corpuscular HGB Conc 34.2 g/dl (32-36); Mean Corpuscular Hemoglobin 31.7 pg (26-34); Mean Corpuscular Volume 92.7 fl (80-100); Mean Platelet Volume 9.5 fl (7.4-10.4); Monocytes Absolute Auto 1.2 K/mm3 (0.1-0.6); Neutrophils Absolute Auto 8.7 K/mm3 (1.3-6.7); Neutrophils Percent Auto 70.4 % (45.5-73.1); Platelet Count Result 234 k/mm3 (150-375); Red Blood Count 4.26 M/mm3 (4.6-6.20); Red Cell Distribution Width 13.2 % (11.5-14.5); White Blood Count 12.4 K/mm3 (4.5-10.0)
[2023-07-06 07:30] LABS: Alanine Aminotransferase 36 U/L (6-50); Albumin Level 4.3 g/dL (3.5-5.1); Alkaline Phosphatase 84 U/L (38-126); Anion Gap 8 mmol/L (8-16); Aspartate Amino Transferase 35 U/L (17-59); Bilirubin,Total 1.3 mg/dL (0.2-1.3); Blood Urea Nitrogen 12 mg/dL (9-20); Calcium 9.2 mg/dL (8.4-10.2); Carbon Dioxide 23 mmol/L (22-30); Chloride 106 mmol/L (98-107); Estimated CRCL calculation 101 ml/min; Estimated Glomerular Filt Rate > 60; Glucose 104 mg/dL (65-110); Sodium 137 mmol/L (137-145)
[2023-07-06 07:51] LABS: Appearance Urine Clear (Clear); Bacteria Urine 4+ /hpf; Bilirubin Urine Negative (Negative); Blood Urine Negative (Negative); Color Urine Yellow (Yellow); Glucose Urine UA Negative (Negative); Ketones Urine Negative (Negative); Leukocyte Esterase Ur 2+ LEU/UL (Negative); Nitrate Urine Positive (Negative); Non Pathogenic Casts 0-2; Protein Urine Negative (Negative); RBC Urine 0-2 /hpf (0-2); Specific Grav Ur 1.016 (1.001-1.035); Squamous Epithelial Cell Urine None seen /hpf (Few); Urobilinogen Urine 0.2 mg/dL (<2.0); WBC Urine 21-50 /hpf; pH Urine 5.5 (5.0-9.0)
[2023-07-06 07:54] LABS: Add Urine Microscopic? YES
[2023-07-06 08:38] VITALS: BP 143/84; PULSE 86; RESP 18; O2SAT 96
--- NOTE | 2023-07-06 09:38 | WPDURCON ---
Assessment and Plan Assessment and plan (1) Hematocele: Code(s): N50.1 - Vascular disorders of male genital organs Status: Acute Assessment and Plan: Right hematocele without significant testicular injury. Given the serum white blood cell count and tenderness this hematocele may be infected. Recurrent urinary tract infection with a history of urethral injury in the past. Discharge on oral quinolone for 10-14 days with follow-up in our office in 7-10 days. Urology Consult Note HPI Date Seen: 07/06/23 Primary Care Provider: Marcie Lake, [employer] [employer] [facility] [facility] Consult Narrative Narrative: Mike Kinsey is a 62 year old male who is a disabled status post right [id number] amputation in the past. He wears a plastic prosthesis it comes to his hip. Five days ago he took a fall with traumatic injury to his right hemiscrotum. Became progressively swollen and tender prompting ER visit today. He has had no fevers chills. Scrotal ultrasound shows an intact testicle with good blood flow. There does appear to spermatocele in the right hemiscrotum. In addition to that he appears to have urinary tract infection. This is his 2nd UTI in 3 years. Does have a history traumatic urethral injury requiring dilatation while in the . He denies significant obstructive voiding symptoms. Review of Systems Review of Systems: All systems reviewed & are unremarkable except as noted in HPI and below PMFSH Social History Social History Smoking status: Former smoker Tobacco type: e-cigarettes/vaping Lack of Transportation: No Lack of Food: Never True Current Housing: I Have Housing Concerned About Future Housing: No Difficulty Paying Gas/Electric Bills: No Difficulty Paying for Meds: No Currently Unemployed: No Education: Associate Degree Difficulty w/ Childcare or Family Care: No Gender identity (if verbalized by the patient): Male Spiritual care concerns: No Meds Home Medications and Allergies Home Medications Medication Instructions Recorded Confirmed Type atorvastatin 20 mg tablet 20 mg PO DAILY 12/28/20 08/22/22 History carvedilol 12.5 mg tablet 12.5 mg PO BID 12/28/20 08/22/22 History losartan 100 mg tablet 100 mg PO DAILY 12/28/20 08/22/22 History amlodipine 10 mg tablet 10 mg PO DAILY 08/22/22 08/22/22 History cyclobenzaprine 10 mg tablet 10 mg PO PRN 08/22/22 08/22/22 History cefdinir 300 mg capsule 300 mg PO Q12H 8 days #16 caps 08/23/22 Rx tramadol 50 mg tablet 50 mg PO Q6H PRN Pain Rated 4-6 08/23/22 Rx #10 tabs Allergies Allergy/AdvReac Type Severity Reaction Status Date / Time No Known Allergies Allergy Verified 07/06/23 07:19 Vital Signs Vital Signs - 24 hr 07/06/23 05:59 07/06/23 07:18 07/06/23 08:38 Temperature 97.9 F Pulse Rate 85 81 86 Respiratory Rate 14 18 18 Blood Pressure 152/79 H 143/84 H Pulse Oximetry 99 98 96 Oxygen Delivery Room Air Exam Const: General: no acute distress Resp: Effort & Inspection: normal respiratory effort GI: Inspection: non-distended GI Palp: No abdominal tenderness and No Guarding due to palpation present (GI) Auscultation: normal bowel sounds : Scrotum: edematous and scrotal swelling Results Labs 07/06/23 07:15 07/06/23 07:15 Labs: Short CBC 07/06/23 Range/Units 07:15 WBC 12.4 H (4.5-10.0) K/mm3 Hgb 13.5 L (14.0-18.0) g/dL Hct 39.5 L (42.0-52.0) % Plt Count 234 (150-375) k/mm3 BMP 07/06/23 07:15 Sodium 137 Potassium 4.0 Chloride 106 Carbon Dioxide 23 BUN 12 Creatinine 0.80 Glucose 104 Calcium 9.2 Liver Function 07/06/23 Range/Units 07:15 Total Bilirubin 1.3 (0.2-1.3) mg/dL AST 35 (17-59) U/L ALT 36 (6-50) U/L Alkaline Phosphatase 84 (38-126) U/L Albumin 4.3 (3.5-5.1) g/dL Urine 07/06/23 Range/Units 07:38 Urine Color Yellow (
--- NOTE | 2023-07-06 09:46 | ED.GENADULT ---
HPI - General Adult General Chief complaint: Urogenital-Male Stated complaint: R testicle injury Time Seen by Provider: 07/06/23 07:03 History of Present Illness HPI narrative: Patient is a 62-year-old male who presents ER with injury to his right testicle. It occurred 5 days ago. He is behind his TV entertainment console when he lost his balance and crushed his testicle between it and his fiberglass prosthetic leg. He had instructed [address] to the ground. He has had pain and swelling since then. No dysuria. No urethral discharge. Denies concern for STI. Has history of urethral stricture related to injury when he was in the . Related Data Home Medications Medication Instructions Recorded Confirmed atorvastatin 20 mg tablet 20 mg PO DAILY 12/28/20 08/22/22 carvedilol 12.5 mg tablet 12.5 mg PO BID 12/28/20 08/22/22 losartan 100 mg tablet 100 mg PO DAILY 12/28/20 08/22/22 amlodipine 10 mg tablet 10 mg PO DAILY 08/22/22 08/22/22 cyclobenzaprine 10 mg tablet 10 mg PO PRN 08/22/22 08/22/22 Allergies Allergy/AdvReac Type Severity Reaction Status Date / Time No Known Allergies Allergy Verified 07/06/23 07:19 Review of Systems Review of Systems: All systems reviewed & are unremarkable except as noted in HPI and below Constitutional: Constitutional: Reports no additional constitutional complaints Gastrointestinal: Gastrointestinal: Reports no additional gastrointestinal complaints Genitourinary: Genitourinary: Denies oliguria, Denies dysuria, Denies penile discharge, Reports testicular pain and Denies urinary frequency Comments: Testicular swelling PMFSH Past Medical History Medical History (Updated 07/06/23 @ 09:55 by Allen Carter MD) Amputated right leg Kidney stones Urethral stricture Social History Social History Smoking status: Former smoker Tobacco type: e-cigarettes/vaping Lack of Transportation: No Lack of Food: Never True Current Housing: I Have Housing Concerned About Future Housing: No Difficulty Paying Gas/Electric Bills: No Difficulty Paying for Meds: No Currently Unemployed: No Education: Associate Degree Difficulty w/ Childcare or Family Care: No Gender identity (if verbalized by the patient): Male Spiritual care concerns: No Exam Narrative: GENERAL: Well-appearing, well-nourished, and in no acute distress. HEAD: Normocephalic, atraumatic. ENT: Mucous membranes moist. ABDOMEN: Soft, nontender, nondistended. : . Normal appearing circumcised penis without discharge. Nontender left testicle. Significant swelling to the right testicle with tenderness. No scrotal cellulitis. EXTREMITIES: Normal range of motion. No edema. Right AKA. SKIN: Warm, dry, no rash. NEURO: Alert and oriented x3. PSYCH: Normal mood and affect. Course Course Emergency Course: Patient resting comfortably. Informed of results. Pain improved with Dilaudid. Discussed case with urology who has come to see the patient. Recommendations are outpatient follow-up in 1 week. Ciprofloxacin for 14 days. Vital Signs Vital signs: Vital Signs Temperature 97.9 F 07/06/23 05:59 Pulse Rate 85 07/06/23 05:59 Respiratory Rate 14 07/06/23 05:59 Blood Pressure 152/79 H 07/06/23 05:59 Pulse Oximetry 99 07/06/23 05:59 Oxygen Delivery Room Air 07/06/23 05:59 Temperature 97.9 F 07/06/23 05:59 Pulse Rate 86 07/06/23 08:38 Respiratory Rate 18 07/06/23 08:38 Blood Pressure 143/84 H 07/06/23 08:38 Pulse Oximetry 96 07/06/23 08:38 Oxygen Delivery Room Air 07/06/23 05:59 Medical Decision Making Vital Signs Vital Signs: Vital Signs Temperature 97.9 F 07/06/23 05:59 Pulse Rate 85 07/06/23 05:59 Respiratory Rate 14 07/06/23 05:59 Blood Pressure 152/79 H 07/06/23 05:59 Pulse Oximetry 99 07/06/23 05:59 Oxygen Delivery Room Air 07/06/23 05:59
[2023-07-06 10:02] VITALS: BP 140/80; PULSE 90; RESP 18; O2SAT 98
== END 2023-07-06 10:04 | disposition home or self-care (01) ==
PROVIDERS: Emergency Medicine; Emergency Provider Emergency Medicine; PCP Nurse Practitioner Family
DX: N50.1 Vascular disorders of male genital organs (principal); N45.1 Epididymitis; N39.0 Urinary tract infection, site not specified; Z87.442 Personal history of urinary calculi; Z87.891 Personal history of nicotine dependence
CPT/HCPCS: 36415; 76870; 80053; 81001; 85025; 87077; 87086; 87186; 93976; 96374; 99284; J1170

== ENCOUNTER 2024-03-15 08:20 | Outpatient (CLI) | payer OTHER, SELFPAY ==
--- NOTE | ~2024-03-15 | US_ITS ---
EXAMINATION: US abdomen limited DATE: 03/15/2024 09:19 INDICATION: Hyperbilirubinemia. TECHNIQUE: Multiple grayscale and Doppler ultrasound images of the abdomen were obtained. COMPARISON: CT abdomen and pelvis 08/21/2022 FINDINGS: The visualized portions of the head, body, and tail of the pancreas are normal. Abdominal a manuel is normal in caliber. The liver is normal without focal lesion. There is normal flow in main por nuria vein. The gallbladder is normal in size. No gallstones or gallbladder wall thickening. There is n o sonographic Boss's sign. The common duct is normal and measures 5 mm. IMPRESSION: 1. Normal right upper quadrant ultrasound. Reviewed, dictated and finalized at location A.
== END 2024-03-15 08:21 | disposition home or self-care (01) ==
PROVIDERS: PCP Nurse Practitioner Family; Visit Provider Nurse Practitioner Family
DX: R17 Unspecified jaundice (principal)
CPT/HCPCS: 76705